=== PATIENT | male | born 1980 | race Caucasian/White ===

== ENCOUNTER 2016-07-05 19:09 | Observation (INO) | payer OTHER ==
[~2016-07-05] VITALS: Ht 182.9 cm; Wt 91.4 kg
[~2016-07-05 19:09] MED LIST: ASPI-586 PO; ATOR40TA PO; DIAZ10TA; HYDR-3812; HYOS0.1283 SL; LORA-407; OMEP20TA33 PO; ONDA4TAB8; ONDA8TAB9 PO; OXYC-197 PO; PANT40TA3
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
[2016-07-05] MEDS ORDERED: fentaNYL INJECTION 100 MCG/2 ML AMP ONE (19:35)
[2016-07-05] MEDS ORDERED: PANTOPRAZOLE 40 MG/10 ML (PROTONIX) VIAL ONE (19:36)
[2016-07-05] MEDS ORDERED: NS IV 1000 ML 1,000 ML ONE (19:36)
[2016-07-05] MEDS ORDERED: fentaNYL INJECTION 100 MCG/2 ML AMP IVP STA ×3 (19:37→20:28)
[2016-07-05] MEDS ORDERED: NS IV 1000 ML 1,000 ML IV ONE (19:37)
[2016-07-05] MEDS ORDERED: PANTOPRAZOLE 40 MG/10 ML (PROTONIX) VIAL IV ONE (19:45)
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
[2016-07-05 20:14] LABS: BASOPHILS % (AUTO) 0 % (0-10); EOSINOPHILS # (AUTO) 0.1 10^3/uL (0.0-0.3); EOSINOPHILS % (AUTO) 1 % (0-10); LYMPHOCYTES # (AUTO) 1.8 X 10^3 (1.0-4.0); LYMPHOCYTES % (AUTO) 22 % (12-44); MEAN CORPUSCULAR HEMOGLOBIN 32 PG (25-34); MEAN CORPUSCULAR HGB CONC 35 G/DL (32-36); MEAN CORPUSCULAR VOLUME 92 FL (80-99); MEAN PLATELET VOLUME 9.6 FL (7.4-10.4); MONOCYTES # (AUTO) 0.6 X 10^3 (0.0-1.0); MONOCYTES % (AUTO) 8 % (0-12); NEUTROPHILS # (AUTO) 5.6 X 10^3 (1.8-7.8); NEUTROPHILS % (AUTO) 70 % (42-75); PLATELET COUNT 216 10^3/uL (130-400); RED BLOOD COUNT 4.77 10^6/uL (4.35-5.85); RED CELL DISTRIBUTION WIDTH 14.6 % (10.0-14.5); WHITE BLOOD COUNT 8.1 10^3/uL (4.3-11.0)
[2016-07-05] MEDS ORDERED: NS 100 ML (IVPB) BAG IV ONE (20:15)
[2016-07-05] MEDS ORDERED: IOHEXOL 350 MG/ML 100 ML (OMNIPAQUE 350) VIAL IV ONE (20:15)
[2016-07-05 20:18] LABS: INR 1.1 (0.8-1.4); PROTHROMBIN TIME PATIENT 13.5 SEC (12.2-14.7)
[2016-07-05] MEDS ORDERED: ONDANSETRON 4 MG/2 ML (SDV) Z0FRAN ONE (20:26)
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
[2016-07-05] MEDS ORDERED: ONDANSETRON 4 MG/2 ML (SDV) Z0FRAN IVP ONE (20:45)
[2016-07-05] MEDS ORDERED: morphine INJ 10 MG/ML 1ML (SYR OR VIAL) ONE (20:47)
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
[2016-07-05] MEDS ORDERED: morphine INJ 10 MG/ML 1ML (SYR OR VIAL) IVP STA (20:53)
[2016-07-05 21:05] LABS: ALANINE AMINOTRANSFERASE 34 U/L (0-55); ALBUMIN 4.4 G/DL (3.2-4.5); AMYLASE 75 U/L (25-125); ANION GAP 9 MMOL/L (5-14); ASPARTATE AMINO TRANSFERASE 23 U/L (5-34); BILIRUBIN,TOTAL 0.3 MG/DL (0.1-1.0); BLOOD UREA NITROGEN 16 MG/DL (7-18); BUN/CREATININE RATIO 15; CALCIUM 9.1 MG/DL (8.5-10.1); CARBON DIOXIDE 23 MMOL/L (21-32); CHLORIDE 107 MMOL/L (98-107); CREATINE KINASE 92 U/L (30-200); CREATININE SERUM 1.04 MG/DL (0.60-1.30); GFR ESTIMATED > 60; GLUCOSE 86 MG/DL (70-105); LIPASE 21 U/L (8-78); POTASSIUM 4.1 MMOL/L (3.6-5.0); SODIUM 139 MMOL/L (135-145); TOTAL PROTEIN 7.1 G/DL (6.4-8.2)
[2016-07-05 21:10] LABS: ALCOHOL < 10 MG/DL (<10)
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
[2016-07-05 22:02] LABS: BILIRUBIN,URINE NEGATIVE (NEGATIVE); KETONES,URINE NEGATIVE (NEGATIVE); LEUKOCYTE ESTERASE ,URINE NEGATIVE (NEGATIVE); NITRITE,URINE NEGATIVE (NEGATIVE); PH,URINE 6.5 (5-9); PROTEIN,URINE 1+ (NEGATIVE); UROBILINOGEN,URINE NORMAL (NORMAL)
[2016-07-05 22:05] VITALS: BP 154/91
[2016-07-05 22:30] VITALS: BP 122/79
[2016-07-05 22:31] LABS: WBC,URINE 0-2 /HPF
[2016-07-05] MEDS ORDERED: CATHETER FLUSH 10 ML SYR IV PRN (22:45)
[2016-07-05] MEDS ORDERED: D5 1/2 NS 1000 ML IV SOLUTION 1,000 ML IV SCH (22:45)
[2016-07-05] MEDS ORDERED: ONDANSETRON 4 MG/2 ML (SDV) Z0FRAN IV PRN (22:45)
[2016-07-05 23:00] VITALS: BP 122/78
[2016-07-05] MEDS: morphine INJ 10 MG/ML 1ML (SYR OR VIAL) IV PRN (23:01)
[2016-07-06] MEDS: morphine INJ 10 MG/ML 1ML (SYR OR VIAL) IV PRN ×4 (01:17→07:42)
[2016-07-06 04:00] VITALS: BP 115/76
[2016-07-06] MEDS: CATHETER FLUSH 10 ML SYR IV SCH ×2 (05:14→09:13)
[2016-07-06 05:19] LABS: BASOPHILS % (AUTO) 1 % (0-10); EOSINOPHILS # (AUTO) 0.1 10^3/uL (0.0-0.3); EOSINOPHILS % (AUTO) 2 % (0-10); LYMPHOCYTES % (AUTO) 19 % (12-44); MEAN CORPUSCULAR HEMOGLOBIN 32 PG (25-34); MEAN CORPUSCULAR HGB CONC 34 G/DL (32-36); MEAN CORPUSCULAR VOLUME 93 FL (80-99); MEAN PLATELET VOLUME 9.4 FL (7.4-10.4); MONOCYTES # (AUTO) 0.4 X 10^3 (0.0-1.0); MONOCYTES % (AUTO) 8 % (0-12); NEUTROPHILS # (AUTO) 3.8 X 10^3 (1.8-7.8); NEUTROPHILS % (AUTO) 71 % (42-75); PLATELET COUNT 183 10^3/uL (130-400); RED BLOOD COUNT 4.26 10^6/uL (4.35-5.85); RED CELL DISTRIBUTION WIDTH 14.6 % (10.0-14.5); WHITE BLOOD COUNT 5.4 10^3/uL (4.3-11.0)
[2016-07-06 05:46] LABS: ALANINE AMINOTRANSFERASE 59 U/L (0-55); ALBUMIN 3.6 G/DL (3.2-4.5); AMYLASE 84 U/L (25-125); ANION GAP 5 MMOL/L (5-14); ASPARTATE AMINO TRANSFERASE 80 U/L (5-34); BILIRUBIN,TOTAL 0.5 MG/DL (0.1-1.0); BLOOD UREA NITROGEN 12 MG/DL (7-18); BUN/CREATININE RATIO 12; CALCIUM 8.2 MG/DL (8.5-10.1); CARBON DIOXIDE 25 MMOL/L (21-32); CHLORIDE 109 MMOL/L (98-107); CREATININE SERUM 0.98 MG/DL (0.60-1.30); GFR ESTIMATED > 60; GLUCOSE 85 MG/DL (70-105); LIPASE 36 U/L (8-78); POTASSIUM 3.7 MMOL/L (3.6-5.0); SODIUM 139 MMOL/L (135-145); TOTAL PROTEIN 5.8 G/DL (6.4-8.2)
[2016-07-06] MEDS ORDERED: FLU TRIvalent (5 YOA+) 2016-17 (AFLURIA) 0.5 ML IM ONE (07:15)
[2016-07-06 08:00] VITALS: BP 111/78
[2016-07-06] MEDS ORDERED: PANTOPRAZOLE 40 MG/10 ML (PROTONIX) VIAL IV SCH (09:00)
[2016-07-06] MEDS ORDERED: KETOROLAC 30 MG/ML VIAL IVP ONE (09:15)
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
== END 2016-07-06 09:20 | disposition left against medical advice (07) ==
LOC: EDUNIT# 19:09 → ER 19:11 → UNDOADMOB 21:37 → 4TH 21:37 → UNDODISOB 07-06 09:20
PROVIDERS: ADMIT Surgery; ATTEND Surgery
DX: S06.0X1A Concussion with loss of consciousness of 30 minutes or less, initial encounter (principal); S29.9XXA Unspecified injury of thorax, initial encounter; S39.91XA Unspecified injury of abdomen, initial encounter; S49.91XA Unspecified injury of right shoulder and upper arm, initial encounter; S49.92XA Unspecified injury of left shoulder and upper arm, initial encounter; K92.0 Hematemesis; I25.10 Atherosclerotic heart disease of native coronary artery without angina pectoris; K21.9 Gastro-esophageal reflux disease without esophagitis; F17.210 Nicotine dependence, cigarettes, uncomplicated; F12.10 Cannabis abuse, uncomplicated; V86.59XA Driver of other special all-terrain or other off-road motor vehicle injured in nontraffic accident, initial encounter
CPT/HCPCS: 36415; 70450; 71010; 71260; 72125; 72128; 72131; 72170; 74177; 80053; 80306; 80320; 81000; 82150; 82550; 82553; 83690; 85025; 85610; 85730; 86850; 86900; 86901; 93005; 93041; 96374; 96375; G0378

== ENCOUNTER 2020-01-14 05:39 | Emergency (ER) | payer SELFPAY ==
[~2020-01-14] VITALS: Ht 177.8 cm; Wt 99.7 kg
[~2020-01-14 05:39] MED LIST changes: +ACHD5005; -HYDR-3812; -OXYC-197 PO; +OXYC1TAB87 PO
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
[2020-01-14] MEDS ORDERED: ASPIRIN 81 MG CHEW (CHILDREN'S ASA) PO ONE (06:15)
[2020-01-14 06:23] LABS: BASOPHILS % (AUTO) 0 % (0-10); EOSINOPHILS # (AUTO) 0.3 10^3/uL (0.0-0.3); EOSINOPHILS % (AUTO) 4 % (0-10); HEMATOCRIT 48 % (40-54); HEMOGLOBIN 16.5 G/DL (13.3-17.7); LYMPHOCYTES # (AUTO) 1.9 X 10^3 (1.0-4.0); LYMPHOCYTES % (AUTO) 24 % (12-44); MEAN CORPUSCULAR HEMOGLOBIN 31 PG (25-34); MEAN CORPUSCULAR HGB CONC 34 G/DL (32-36); MEAN CORPUSCULAR VOLUME 90 FL (80-99); MEAN PLATELET VOLUME 10.1 FL (7.4-10.4); MONOCYTES # (AUTO) 0.7 X 10^3 (0.0-1.0); MONOCYTES % (AUTO) 9 % (0-12); NEUTROPHILS # (AUTO) 4.9 X 10^3 (1.8-7.8); NEUTROPHILS % (AUTO) 62 % (42-75); PLATELET COUNT 202 10^3/uL (130-400); RED CELL DISTRIBUTION WIDTH 14.6 % (10.0-14.5); WHITE BLOOD COUNT 7.9 10^3/uL (4.3-11.0)
[2020-01-14 06:34] LABS: ALBUMIN 4.1 GM/DL (3.2-4.5); CHLORIDE 110 MMOL/L (98-107); POTASSIUM 4.3 MMOL/L (3.6-5.0); SODIUM 140 MMOL/L (135-145)
[2020-01-14 06:35] LABS: CALCIUM 8.6 MG/DL (8.5-10.1)
[2020-01-14 06:36] LABS: GLUCOSE 100 MG/DL (70-105); TOTAL PROTEIN 7.2 GM/DL (6.4-8.2)
[2020-01-14 06:37] LABS: CARBON DIOXIDE 21 MMOL/L (21-32)
[2020-01-14 06:38] LABS: BILIRUBIN,TOTAL 0.3 MG/DL (0.1-1.0)
[2020-01-14 06:40] LABS: ALKALINE PHOSPHATASE 76 U/L (40-136); CREATININE SERUM 1.08 MG/DL (0.60-1.30); GFR ESTIMATED > 60
[2020-01-14 06:41] LABS: BUN/CREATININE RATIO 11
[2020-01-14 06:43] LABS: ALANINE AMINOTRANSFERASE 31 U/L (0-55); MAGNESIUM 2.2 MG/DL (1.6-2.4)
[2020-01-14 06:44] LABS: LIPASE 43 U/L (8-78)
[2020-01-14 06:45] LABS: FIBRIN DEGRADATION PRODUCTS 0.25 UG/ML (0.00-0.49); INR 0.9 (0.8-1.4); PROTHROMBIN TIME PATIENT 12.4 SEC (12.2-14.7)
--- NOTE | 2020-01-14 07:04 | Diagnostic Imaging Report ---
INDICATION: Chest pain and shortness of breath Comparison made with prior study from 07/05/2016. FINDINGS: Lungs demonstrate no focal infiltrate or consolidation. There is no effusion. There is no pneumothorax. Heart size and mediastinal contours appear appropriate and pulmonary vascularity appears normal. IMPRESSION: 1. No radiographic evidence of an acute cardiopulmonary process. Dictated by: Dictated on workstation # [id number]
[2020-01-14] MEDS ORDERED: KETOROLAC 30 MG/ML VIAL IVP STA (07:22)
[2020-01-14 07:36] VITALS: BP 117/90
== END 2020-01-14 07:40 | disposition home or self-care (01) ==
LOC: EDUNIT# 05:39 → ER 05:44
DX: R07.9 Chest pain, unspecified (principal); I25.10 Atherosclerotic heart disease of native coronary artery without angina pectoris; M19.90 Unspecified osteoarthritis, unspecified site; M54.9 Dorsalgia, unspecified; G89.29 Other chronic pain; F41.9 Anxiety disorder, unspecified; F32.9 Major depressive disorder, single episode, unspecified; K21.9 Gastro-esophageal reflux disease without esophagitis; Z79.82 Long term (current) use of aspirin; Z95.5 Presence of coronary angioplasty implant and graft
CPT/HCPCS: 36415; 71045; 80053; 83690; 83735; 83874; 83880; 84484; 85025; 85379; 85610; 85730; 93005; 93041

== ENCOUNTER 2020-03-14 20:27 | Emergency (ER) | payer SELFPAY ==
[~2020-03-14] VITALS: Ht 177.8 cm; Wt 104.0 kg
[~2020-03-14 20:27] MED LIST changes: +METH-313 PO; -PANT40TA3; +PANT40TA52
[2020-03-14 20:34] VITALS: BP 160/99
[2020-03-14] MEDS ORDERED: ORPHENADRINE 60 MG/2 ML (NORFLEX) AMP (ED ONLY) IM ONE (20:45)
[2020-03-14] MEDS ORDERED: KETOROLAC 60 MG/2 ML VIAL IM ONE (20:45)
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
[2020-03-14] MEDS ORDERED: ACET-1672 PO (20:49)
[2020-03-14] MEDS ORDERED: NAPR-1070 PO (20:49)
--- NOTE | 2020-03-14 21:10 | Diagnostic Imaging Report ---
HISTORY: Left shoulder pain after trauma and fall. TECHNIQUE: Three views of the left shoulder. COMPARISON: 07/05/2016. FINDINGS: No acute fracture or dislocation is seen in the left shoulder. Alignment appears normal. Joint spaces are preserved. IMPRESSION: No acute osseous abnormality is seen in the left shoulder. Dictated by: Dictated on workstation # [id number]
== END 2020-03-14 21:30 | disposition home or self-care (01) ==
LOC: EDUNIT# 20:27 → ER 20:28
DX: M24.9 Joint derangement, unspecified (principal); G89.29 Other chronic pain; M54.9 Dorsalgia, unspecified; Z82.49 Family history of ischemic heart disease and other diseases of the circulatory system; Z79.82 Long term (current) use of aspirin; Z77.22 Contact with and (suspected) exposure to environmental tobacco smoke (acute) (chronic); Z95.5 Presence of coronary angioplasty implant and graft; Z87.820 Personal history of traumatic brain injury; W22.8XXA Striking against or struck by other objects, initial encounter; W17.89XA Other fall from one level to another, initial encounter
CPT/HCPCS: 73030; 99283; A4565

== ENCOUNTER 2020-04-14 14:49 | Emergency (ER) | payer SELFPAY ==
[~2020-04-14 14:49] MED LIST changes: +ACET-1672 PO; +NAPR-1070 PO
--- NOTE | 2020-04-14 15:16 | ED Chest Pain ---
General Stated Complaint: COUGH/CP Source: patient Exam Limitations: no limitations History of Present Illness Date Seen by Provider: Apr 14, 2020 Time Seen by Provider: 15:10 Initial Comments 40-year-old male presents with left sided chest pain that radiates to his shoulders up into his left sided neck and his left arm. Patient reports he had an episode this morning he took 324 aspirin the pain went away. Patient reports that the pain returned again approximately 30 or so minutes ago. Patient states this feels similar in the left side of his pain that radiates. Patient has had 3 previous stents, he was supposed to have a heart catheter 2 years ago and never followed up. Patient supposed be on a blood thinner for his coronary artery disease and does not take 1. He has had a cough for about 10 days was tested negative for COVID. He has no fevers chills nausea vomiting or shortness of breath. He reports some mild clamminess/diaphoresis. Allergies and Home Medications Allergies Coded Allergies: No Known Drug Allergies (Unverified , 03/16/16) Home Medications Acetaminophen/Diphenhydramine 1 Each Tablet, 2 EACH PO HS PRN for PAIN-SEVERE (8-10) Prescribed by: HIRA DONIS on 03/14/202048 Aspirin 81 Mg Tablet.dr, 81 MG PO DAILY Prescribed by: PAUL WESTBROOK on 03/27/16 174 Atorvastatin Calcium 40 Mg Tablet, 40 MG PO DAILY Prescribed by: PAUL WESTBROOK on 03/27/161744 Cyclobenzaprine HCl 10 Mg Tablet, 10 MG PO Q8H PRN for SPASMS Prescribed by: CARMINE CARREON on 04/14/20 182 Hyoscyamine Sulfate 0.125 Mg Tab.subl, 0.125 MG SL TID PRN for ABDOMINAL PAIN Prescribed by: HIRA DONIS on 05/14/16 1524 Methocarbamol 750 Mg Tablet, 1-2 TAB PO Q4H PRN for PAIN-SEVERE (8-10) Prescribed by: HIRA DONIS on 02/15/20 170 Naproxen 500 Mg Tablet, 500 MG PO BID Prescribed by: CARMINE CARREON on 04/14/201821 Naproxen Sodium 550 Mg Tablet, 550 MG PO BID Prescribed by: HIRA DONIS on 03/14/202048 Ondansetron 8 Mg Tab.rapdis, 8 MG PO Q6H PRN for NAUSEA/VOMITING Prescribed by: HIRA DONIS on 05/14/16 1524 Patient Home Medication List Home Medication List Reviewed: Yes Review of Systems Review of Systems Constitutional: No chills; diaphoresis; No fever EENTM: No Symptoms Reported Respiratory: Cough; Denies Shortness of Air Cardiovascular: Chest Pain; Denies Irregular Heart Rate, Denies Lightheadedness, Denies Palpitations Gastrointestinal: No Symptoms Reported Genitourinary: No Symptoms Reported Musculoskeletal: no symptoms reported Skin: no symptoms reported Psychiatric/Neurological: No Symptoms Reported Endocrine: No Symptoms Reported Hematologic/Lymphatic: No Symptoms Reported Past Jgyhwiz-Jpcoaj-Qzmbmy Hx Past Med/Social Hx: Reviewed Nursing Past Med/Soc Hx Patient Social History Alcohol Beverage of Choice: Beer Type Used: Cigarettes 2nd Hand Smoke Exposure: Yes Recent Foreign Travel: No Contact w/Someone Who Travel: No Recent Hopitalizations: Yes (chest pain, ) Immunizations Up To Date Tetanus Booster (TDap): Less than 5yrs Seasonal Allergies Seasonal Allergies: No Past Medical History Surgeries: Yes (CARDIAC CATH 03/26/16-NO INTERVENTION) Appendectomy, Coronary Stent, Gallbladder Respiratory: No Currently Using CPAP: No Currently Using BIPAP: No Cardiac: Yes (CARDIAC CATH 03/26/16--MILD DISEASE, NO INTERVENTION) Coronary Artery Disease Neurological: Yes (2009; 03/2016) Concussion Reproductive Disorders: No Sexually Transmitted Disease: No HIV/AIDS: No Genitourinary: No Gastrointestinal: Yes Gastroesophageal Reflux, Gall Bladder Disease Musculoskeletal: Yes Degenerate Disk Disease, Arthritis, Back Injury, Chronic Back Pain Endocrine: No HEENT: No Hearing Impairment: Denies Cancer: No Psychosocial: Yes Sleep Difficulties, Anxiety, Depression Integumentary: No Blood Disorders: No Family Medical History Cardiovascular disease 19 FATHER ([place] AT 40 WITH [place]) G8 SISTER (STIENTS X3) CAD Under 55 Years Old Physical Exam Vital Signs Vital Signs - First Documented Capillary Refill : Height, Weight, BMI Height: 6'0.00" Weight: 201lbs. 8.0oz. 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 Norm as Tested Skin: Normal Color, Warm/Dry Progress/Results/Core Measures Results/Orders Lab Results Laboratory Tests Test 04/14/20 15:15 04/14/20 15:20 04/14/20 17:24 Range/Units White Blood Count 7.9 4.3-11.0 10^3/uL Red Blood Count 5.22 4.30-5.52 10^6/uL Hemoglobin 16.1 13.3-17.7 g/dL Hematocrit 48 40-54 % Mean Corpuscular Volume 91 80-99 fL Mean Corpuscular Hemoglobin 31 25-34 pg Mean Corpuscular Hemoglobin Concent 34 32-36 g/dL Red Cell Distribution Width 14.1 10.0-14.5 % Platelet Count 205 130-400 10^3/uL Mean Platelet Volume 9.5 9.0-12.2 fL Immature Granulocyte % (Auto) 0 % Neutrophils (%) (Auto) 66 42-75 % Lymphocytes (%) (Auto) 21 12-44 % Monocytes (%) (Auto) 9 0-12 % Eosinophils (%) (Auto) 4 0-10 % Basophils (%) (Auto) 1 0-10 % Neutrophils # (Auto) 5.2 1.8-7.8 10^3/uL Lymphocytes # (Auto) 1.7 1.0-4.0 10^3/uL Monocytes # (Auto) 0.7 0.0-1.0 10^3/uL Eosinophils # (Auto) 0.3 0.0-0.3 10^3/uL Basophils # (Auto) 0.1 0.0-0.1 10^3/uL Immature Granulocyte # (Auto) 0.0 0.0-0.1 10^3/uL Prothrombin Time 13.1 12.2-14.7 SEC INR Comment 1.0 0.8-1.4 Activated Partial Thromboplast Time 30 24-35 SEC D-Dimer 0.42 0.00-0.49 UG/ML Sodium Level 140 135-145 MMOL/L Potassium Level 4.0 3.6-5.0 MMOL/L Chloride Level 107 98-107 MMOL/L Carbon Dioxide Level 23 21-32 MMOL/L Anion Gap 10 5-14 MMOL/L Blood Urea Nitrogen 11 7-18 MG/DL Creatinine 1.11 0.60-1.30 MG/DL Estimat Glomerular Filtration Rate > 60 BUN/Creatinine Ratio 10 Glucose Level 106 H 70-105 MG/DL Calcium Level 9.0 8.5-10.1 MG/DL Corrected Calcium 8.9 8.5-10.1 MG/DL Magnesium Level 2.3 1.6-2.4 MG/DL Total Bilirubin 0.3 0.1-1.0 MG/DL Aspartate Amino Transf (AST/SGOT) 28 5-34 U/L Alanine Aminotransferase (ALT/SGPT) 38 0-55 U/L Alkaline Phosphatase 80 40-136 U/L Myoglobin 39.2 10.0-92.0 NG/ML Troponin I < 0.028 < 0.028 <0.028 NG/ML B-Type Natriuretic Peptide < 10.0 <100.0 PG/ML Total Protein 7.4 6.4-8.2 GM/DL Albumin 4.1 3.2-4.5 GM/DL Lipase 36 8-78 U/L Coronavirus 2019 (DIANE) Negative Negative My Orders Orders - CARREON,CARMINE L DO Cbc With Automated Diff (04/14/20 15:16) Magnesium (04/14/20 15:16) Chest 1 View, Ap/Pa Only (04/14/20 15:16) Ekg Tracing (04/14/20 15:16) Comprehensive Metabolic Panel (04/14/20 15:16) Myoglobin Serum (04/14/20 15:16) Protime With Inr (04/14/20 15:16) Partial Thromboplastin Time (04/14/20 15:16) O2 (04/14/20 15:16) Monitor-Rhythm Ecg Trace Only (04/14/20 15:16) Ed Iv/Invasive Line Start (04/14/20 15:16) Lipase (04/14/20 15:16) BNP (04/14/20 15:16) Troponin I (04/14/20 15:16) Nitroglycerin 0.4 Mg Btl 25's (Nitrostat (04/14/20 15:30) Covid 19 Inhouse Test (04/14/20 15:16) Nitroglycerin 0.4 Mg Btl 25's (Nitrostat (04/14/20 15:18) Ondansetron Injection (Zofran Injectio (04/14/20 15:45) Acetaminophen Tablet (Tylenol Tablet) (04/14/20 15:39) Ondansetron Injection (Zofran Injectio (04/14/20 15:40) Acetaminophen Tablet (Tylenol Tablet) (04/14/20 15:40) Ketorolac Injection (Toradol Injection) (04/14/20 16:00) Fibrin Degradation Products (04/14/20 16:20) Troponin I (04/14/20 16:56) Ekg Tracing (04/14/20 16:56) Orphenadrine Inj (Ed Only) (Norflex Inje (04/14/20 17:21) Medications Given in ED Vital Signs/I&O 04/14/20 04/14/20 04/14/20 15:05 15:05 18:37 Temp 36.7 Pulse 80 71 Resp 20 20 B/P (MAP) 139/106 (117) 118/85 (117) Pulse Ox 98 98 O2 Delivery Room Air Room Air Room Air Progress Progress Note : Time: 08:15 Progress Note Patient with concerning discrepancies in his history. Patient reports to me that in 2010 or he had 4 heart stents placed. Patient was seen here at [facility] in 2015. That time he had a cardiology consult and denied ever having chest pain prior, reports a very similar pain that he described to today after falling off a roof. Patient had a heart catheter at that time that was negative with no stents noted in the cardiology note or the heart catheterization note. [facility] review shows multiple narcotic refills from the [facility]. Patient was seen by me with exactly the same complaints on January 13 and refused second troponin or admission. Patient has been seen on the first other second of every month in January now April. I reviewed these findings with the patient. I showed him a report of the heart catheterization. Patient continues to state that he had stents placed in [facility] which i question, since he denied prior cardiac history in 2016 visit. I do not feel this is cardiac in nature based on his history and note review, presentation 2 negative EKGs, 2 negative troponins with prior visits with similar complaints. I suspect it is musculoskeletal in nature with some possible drug-seeking behavior involved. I will prescribe him Naprosyn and Norflex. I recommended he follow outpatient with his primary care provider and intellectual property manager for further review. Patient stable and will be discharged home Initial ECG Impression Date: Apr 14, 2020 Initial ECG Impression Time: 15:11 Initial ECG Rhythm: Normal Sinus Initial ECG Intervals: Normal Initial ECG Impression: Nonspecific Changes Comment Normal sinus rhythm, no acute ST elevation, nonspecific T abnormalities, no acute findings. EKG : EKG Time: 17:19 Rhythm: Normal Sinus Intervals: Normal ECG Comparisson: Unchanged ECG Impression: Normal Comment NSR, no acute changes. Departure Impression Primary Impression: Chest pain Qualified Codes: R07.9 - Chest pain, unspecified Disposition: 01 HOME, SELF-CARE Condition: Stable Departure-Patient Inst. Referrals: NO,LOCAL PHYSICIAN (PCP/Family) Primary Care Physician Patient Instructions: Chest Pain That Is Not Caused by the Heart (DC), Chest Pain (DC) Add. Discharge Instructions: Follow-up with your primary care provider and intellectual property manager for recheck of todays complaints Scripts Naproxen (Naprosyn) 500 Mg Tablet 500 MG PO BID, #30 TAB 0 Refills Prov: CARMINE CARREON DO 04/14/20 Cyclobenzaprine HCl (Cyclobenzaprine HCl) 10 Mg Tablet 10 MG PO Q8H PRN for SPASMS, #15 TAB 0 Refills Prov: CARMINE CARREON DO 04/14/20 CARMINE CARREON DO Apr 14, 2020 15:16
[2020-04-14] MEDS ORDERED: NITROGLYCERIN 0.4 MG SL TABS BTL 25'S SL ONE (15:18)
[2020-04-14] MEDS: NITROGLYCERIN 0.4 MG SL TABS BTL 25'S SL PRN ×2 (15:22→15:31)
[2020-04-14 15:29] LABS: BASOPHILS # (AUTO) 0.1 10^3/uL (0.0-0.1); BASOPHILS % (AUTO) 1 % (0-10); EOSINOPHILS # (AUTO) 0.3 10^3/uL (0.0-0.3); EOSINOPHILS % (AUTO) 4 % (0-10); HEMATOCRIT 48 % (40-54); HEMOGLOBIN 16.1 g/dL (13.3-17.7); LYMPHOCYTES # (AUTO) 1.7 10^3/uL (1.0-4.0); LYMPHOCYTES % (AUTO) 21 % (12-44); MEAN CORPUSCULAR HEMOGLOBIN 31 pg (25-34); MEAN CORPUSCULAR HGB CONC 34 g/dL (32-36); MEAN CORPUSCULAR VOLUME 91 fL (80-99); MEAN PLATELET VOLUME 9.5 fL (9.0-12.2); MONOCYTES # (AUTO) 0.7 10^3/uL (0.0-1.0); MONOCYTES % (AUTO) 9 % (0-12); NEUTROPHILS # (AUTO) 5.2 10^3/uL (1.8-7.8); NEUTROPHILS % (AUTO) 66 % (42-75); PLATELET COUNT 205 10^3/uL (130-400); WHITE BLOOD COUNT 7.9 10^3/uL (4.3-11.0)
--- NOTE | 2020-04-14 15:36 | NUR ---
1522 Nitro #1 adm. Pain 8/10 BP 130/85 1531 BP 137/84 Pain 7/10 Nitro #2 adm. 1536 BP 120/82 Pain 6/10 Pt reports headache pain 10/10 et severe nausea r/t headache. Provider notified.
[2020-04-14 15:38] LABS: ALBUMIN 4.1 GM/DL (3.2-4.5); CHLORIDE 107 MMOL/L (98-107); SODIUM 140 MMOL/L (135-145)
[2020-04-14] MEDS ORDERED: ACETAMINOPHEN 500 MG TAB (TYLENOL) PO STA (15:39)
[2020-04-14 15:40] LABS: GLUCOSE 106 MG/DL (70-105); PROTHROMBIN TIME PATIENT 13.1 SEC (12.2-14.7)
[2020-04-14] MEDS ORDERED: ONDANSETRON 4 MG/2 ML (SDV) Z0FRAN ONE (15:40)
[2020-04-14] MEDS ORDERED: ACETAMINOPHEN 500 MG TAB (TYLENOL) ONE (15:40)
[2020-04-14 15:41] LABS: TOTAL PROTEIN 7.4 GM/DL (6.4-8.2)
[2020-04-14 15:42] LABS: BILIRUBIN,TOTAL 0.3 MG/DL (0.1-1.0); CARBON DIOXIDE 23 MMOL/L (21-32)
[2020-04-14 15:44] LABS: ALKALINE PHOSPHATASE 80 U/L (40-136); CREATININE SERUM 1.11 MG/DL (0.60-1.30); GFR ESTIMATED > 60
[2020-04-14 15:45] LABS: BUN/CREATININE RATIO 10
[2020-04-14] MEDS ORDERED: ONDANSETRON 4 MG/2 ML (SDV) Z0FRAN IVP ONE (15:45)
[2020-04-14 15:47] LABS: ALANINE AMINOTRANSFERASE 38 U/L (0-55); MAGNESIUM 2.3 MG/DL (1.6-2.4)
[2020-04-14 15:48] LABS: LIPASE 36 U/L (8-78)
[2020-04-14] MEDS ORDERED: KETOROLAC 30 MG/ML VIAL IVP STA (16:00)
--- NOTE | 2020-04-14 16:07 | Diagnostic Imaging Report ---
INDICATION: Under Covid precautions. Chest pain. EXAMINATION: Chest, 04/14/2020. COMPARISON: 07/05/2016. FINDINGS: Heart is unremarkable. Pulmonary vasculature is slightly prominent. The lungs are clear. No infiltrate, effusion or pneumothorax. IMPRESSION: Minimal prominence of the pulmonary vasculature; otherwise, negative chest. Dictated by: Dictated on workstation # [id number]
[2020-04-14] MEDS ORDERED: ORPHENADRINE 60 MG/2 ML (NORFLEX) AMP (ED ONLY) IM STA (17:21)
[2020-04-14] MEDS ORDERED: NAPR-1071 PO (18:22)
[2020-04-14] MEDS ORDERED: CYCL10TA9 PO (18:22)
[2020-04-14 18:37] VITALS: BP 118/85
== END 2020-04-14 18:43 | disposition home or self-care (01) ==
LOC: EDUNIT# 14:49 → ER 14:51
DX: R07.9 Chest pain, unspecified (principal); F41.9 Anxiety disorder, unspecified; Z20.828 Contact with and (suspected) exposure to other viral communicable diseases; Z82.49 Family history of ischemic heart disease and other diseases of the circulatory system; Z95.5 Presence of coronary angioplasty implant and graft; Z95.9 Presence of cardiac and vascular implant and graft, unspecified; Z77.22 Contact with and (suspected) exposure to environmental tobacco smoke (acute) (chronic); Z87.820 Personal history of traumatic brain injury; Z79.82 Long term (current) use of aspirin
CPT/HCPCS: 71045; 80053; 83690; 83735; 83874; 83880; 84484; 85025; 85379; 85610; 85730; 93005; 93041; 99284; U0002; 36415; 87635